=== PATIENT | male | born 1970 | race Caucasian/White ===

== ENCOUNTER 2022-10-30 23:15 | Emergency (ER) | payer OTHER ==
[~2022-10-30] VITALS: Ht 165.1 cm; Wt 90.7 kg
[2022-10-30 23:50] VITALS: BP 133/83
[2022-10-31] MEDS ORDERED: FAMO-90 PO (01:22)
[2022-10-31 01:36] VITALS: BP 133/83
--- NOTE | 2022-10-31 01:36 | NUR ---
Pt was seen and evaluated by [facility]
== END 2022-10-31 01:36 | disposition home or self-care (01) ==
LOC: MED 23:15
DX: K29.70 Gastritis, unspecified, without bleeding (principal); Z79.899 Other long term (current) drug therapy
CPT/HCPCS: 99282